=== PATIENT | male | born 2000 | race Caucasian/White ===

== ENCOUNTER 2023-03-24 07:23 | Emergency (ER) | payer OTHER ==
[~2023-03-24] VITALS: Ht 188 cm; Wt 114.6 kg
[2023-03-24 07:24] VITALS: BP 153/67; TEMP 97.2; O2SAT 99
[2023-03-24] MEDS ORDERED: ZITHTAB PO (09:00)
== END 2023-03-24 09:20 | disposition home or self-care (01) ==
LOC: M ED 07:23
DX: J20.9 Acute bronchitis, unspecified (principal); F17.210 Nicotine dependence, cigarettes, uncomplicated